=== PATIENT | female | born 1965 | race American Indian/Alaskan Native ===

== ENCOUNTER 2016-11-30 09:41 | Emergency (ER) | payer SELFPAY ==
[2016-11-30 09:51] VITALS: BMI 25.8
--- NOTE | 2016-11-30 10:17 | C.PDOC ---
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 Patient reports of multiple prior ER visit for same complaint. Denies trauma, chest pain, neck pain, headache, weakness or numbness. 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) Past Medical History Reviewed: Historical Data, Nursing Documentation, Vital Signs Vital Signs: Last Vital Signs Temp 97.6 F 11/30/16 11:44 Pulse 61 11/30/16 11:44 Resp 20 11/30/16 11:44 BP 133/86 11/30/16 11:44 Pulse Ox 97 11/30/16 11:44 - [facility] Procedures CL REDUC DISLOC-SHOULDER (03/07/14) Family History: States: No Known Family Hx - Social History Hx Tobacco Use: Yes Hx Alcohol Use: Yes Hx Substance Use: No - Immunization History Hx Tetanus Toxoid Vaccination: No Hx Influenza Vaccination: No Hx Pneumococcal Vaccination: No Review Of Systems Except As Marked, All Systems Reviewed And Found Negative. Cardiovascular: Negative for: Chest Pain Musculoskeletal: Positive for: Other ((+) Left shoulder dislocation). Negative for: Neck Pain Neurological: Negative for: Weakness, Numbness, Headache Physical Exam - Physical Exam Appears: Non-toxic, No Acute Distress Skin: Warm, Dry, No Rash Head: Atraumatic, Normacephalic Oral Mucosa: Moist Neck: Normal, Normal ROM, Supple Chest: Symmetrical, No Tenderness Extremity: Capillary Refill (<2 secs), Other ((+) Flattening of left deltoid, internal rotation.) Pulses: Left Radial: Normal, Right Radial: Normal Neurological/Psych: Oriented x3, Normal Speech, Normal Motor, Normal Sensation ED Course And Treatment O2 Sat by Pulse Oximetry: 97 (RA) Pulse Ox Interpretation: Normal - Other Rad X-Ray - Left Shoulder X-Ray: Interpreted by Me, Viewed By Me Interpretation: S/P REDUCTION. NO DISLOCATION, FX Orthopedic Time Performed: 10:23 Time Out: Side verified, Site verified, Patient ID confirmed Procedure: Joint reduction Location: Left Consent obtained: Written Performed by: Attending Physician Diagnosis: Dislocation Joints: Glenohumeral Joint Procedural Sedation: Propofol Systemic Analgesia: Other Capillary refill: Normal Distal Sensation: Normal Distal Motor Function: Normal Capillary Refill: Normal Compartment: Normal Distal Sensation: Normal Distal Motor Function: Normal Post-reduction Radiograph: Good Alignment Patient tolerated procedure: Well Progress - Re-Evaluation Re-evaluation Note: 11/30/16 10:21 S/P CLOSED REDUCTION ATTEMPT W TRACTION-COUNTERTRACTION AND W WEIGHTS X 2 WO IMPROVE. PT AGREES TO SEDATION. NPO SINCE 2129 Medical Decision Making Medical Decision Making: PLAN: * Toradol IVP * Diprivan IV * Fentanyl IV * Sodium Chloride IV NOTE: * Patient is requesting immediate reduction without sedation. Patient states " if you put it in now, I don't need sedation". * 2 non sedation reduction attempts were made with no success. * Attempted reduction with moderate sedation with success. Disposition Counseled Patient/Family Regarding: Studies Performed, Diagnosis, Need For Followup - Disposition Referrals: [facility] [Outside] [facility] [Outside] David Aviles III, MD [Staff Provider] - Disposition: HOME/ ROUTINE Disposition Time: 11:31 Condition: IMPROVED Instructions: Shoulder Dislocation (ED), Moderate Sedation (ED), Shoulder Manipulation (GEN) Forms: [facility] (German), Work Excuse - Clinical Impression Clinical Impression: Shoulder dislocation, recurrent - Scribe Statement The provider has reviewed the documentation as recorded by the Eribertoibcarlos a Zaragoza Provider Attestation: All medical record entries made by the Eribertoibe were at my direction and personally dictated by me. I have reviewed the chart and agree that the record accurately reflects my personal performance of the history, physical exam, medical decision making, and the department course for this patient. I have also personally directed, reviewed, and agree with the discharge instructions and disposition. Proc Sedation PRE-PROCEDURE - Pre-Anesthesia Chief Complaint: Upper Extremity Problem/Injury Past Medical History: Medications Reviewed, Allergies Reviewed, Record Review Previous Surgies: Reviewed Family History/Social History: Reviewed - Physical Exam/Review of Systems Vital Signs Reviewed: Yes Cardiovascular: Regular Rate and Rhythm, Normal S1, S2 Respiratory/Chest: Clear to Auscultation, Good Air Exchange Neurological: GCS=15, CN II-XII Intact, Speech Normal Mental Status: Alert and Oriented X 3 - Pre-Procedure Airway Assessment History of difficult intubation or surgical airway (i.e trach):: No Inability to extend neck:: No Mouth opening less than two finger breadth:: No Diagnosis of sleep apnea:: No Less than three finger breadth to hyoid bone:: No ASA Criteria: 1 - Healthy, normal. 2 - Mild systemic disease (No functional limitations, mildline obesity, DM withot complications, Hypertention). 3 - Severe systemic disease (Some functional limitation, stable angina, morbid obesity, controlled COPD/Asthma/CHF). 4 - Sever systemic disease constant threat to life (Unstable angina, active symptoms of COPD/Asthma, CHF/ Hypertension. 5 - Moribund ASA Clarification: ASA II Mallampati (airway): Class II Proc Sedation INTRA-PROCEDURE - Medications Medications Given: Discontinued Medications Fentanyl (Fentanyl) 75 mcg IV STAT STA Stop: 11/30/16 10:37 Last Admin: 11/30/16 10:48 Dose: 75 mcg eMAR Start Stop Document 11/30/16 10:48 [facility] (Rec: 11/30/16 11:21 [facility] [id number]) Intravenous Solution Start Date 11/30/16 Start Time 10:48 End Date 11/30/16 End time 10:49 Total Infusion Time 1 Sodium Chloride (Sodium Chloride 0.9%) 1,000 mls @ 1,000 mls/hr IV .Q1H ONE Stop: 11/30/16 11:34 Last Admin: 11/30/16 11:20 Dose: 1,000 mls/hr eMAR Start Stop Document 11/30/16 11:20 [facility] (Rec: 11/30/16 11:20 [facility] [id number]) Intravenous Solution Start Date 11/30/16 Start Time 10:35 Ketorolac Tromethamine (Toradol) 30 mg IVP STAT STA Stop: 11/30/16 10:37 Last Admin: 11/30/16 10:45 Dose: 30 mg MAR Pain Assessment Document 11/30/16 10:45 FDA (Rec: 11/30/16 11:21 [facility] [id number]) Pain Reassessment Is this a pain reassessment? Yes Sleep Is patient sleeping during reassessment? No Presence of Pain Presence of Pain Yes Pain Scale Used Pain Scale Used Numeric Location Left, Right or Bilateral Left Pain Location Body Site Shoulder IVP Administration Document 11/30/16 10:45 FDA (Rec: 11/30/16 11:21 [facility] [id number]) Charges for Administration # of IVP Administrations 1 Propofol (Diprivan) 200 mg IV ONCE ONE Stop: 11/30/16 10:37 Last Admin: 11/30/16 11:56 Dose: Propofol (Diprivan) 75 mg IV ONCE ONE Stop: 11/30/16 10:43 Propofol (Diprivan) 25 mg IV ONCE ONE Stop: 11/30/16 10:44 Last Admin: 11/30/16 10:50 Dose: 25 mg eMAR Start Stop Document 11/30/16 10:50 FDA (Rec: 11/30/16 11:57 [facility] [id number]) Intravenous Solution Start Date 11/30/16 Start Time 10:50 End Date 11/30/16 End time 10:51 Total Infusion Time 1 Propofol (Diprivan) 50 mg IV ONCE ONE Stop: 11/30/16 10:46 Last Admin: 11/30/16 10:51 Dose: 50 mg eMAR Start Stop Document 11/30/16 10:51 [facility] (Rec: 11/30/16 11:57 [facility] [id number]) Intravenous Solution Start Date 11/30/16 Start Time 10:51 End Date 11/30/16 End time 10:52 Total Infusion Time 1 Proc Sedation POST-PROCEDURE - Post Procedure Physician Note Post Procedure Note: A03, ASYMPT. PS FEELS BETTER. CURRENTLY AT BASELINE PRE PROCEDURE MENTAL STATUS ESTIMATED BLOOD LOSS 0 PT TOLERATED WELL SEDATION DISCHARGE INSTRUCTIONS GIVEN. - Discharge Checklist Written MD order for Discharge: Yes Vital signs assessed and are consistent with pre-procedure reading: Yes Minimal nausea, vomiting, and dizziness: Yes Ambulates to pre-procedural level: Yes Alert and oriented to pre-procedural level: Yes Responsible adult escort present: No DISCHARGE INSTRUCTIONS GIVEN:: Yes Orthopedic Care Application Of:: Shoulder Immobilizer
[2016-11-30] MEDS ORDERED: Sodium Chloride 0.9% 1,000 ML IV ONE (10:35)
[2016-11-30] MEDS ORDERED: Sodium Chloride 0.9% 1,000 ML ONE (10:42)
[2016-11-30] MEDS ORDERED: Propofol 10 mg/ml Inj (20 ML) IV ONE ×3 (10:42→10:45)
[2016-11-30] MEDS ORDERED: Propofol 10 mg/ml Inj (20 ML) ONE (10:42)
[2016-11-30] MEDS: Propofol 10 mg/ml Inj (20 ML) IV ONE ×2 (10:49→11:56)
[2016-11-30 11:31] VITALS: O2SAT 97
[2016-11-30 11:45] VITALS: BP 133/86; PULSE 61; RESP 20; TEMP 97.6
--- NOTE | 2016-11-30 11:56 | RAD ---
PROCEDURE: Radiographs of the Left Shoulder HISTORY: sp reduction COMPARISON: Left shoulder radiograph performed 02/24/15 FINDINGS: BONES: No acute displaced fracture. The distal clavicle and underlying ribs appear intact. JOINTS: No acute dislocation. Glenohumeral joint space narrowing. SOFT TISSUES: Soft tissues appear unremarkable. No evidence of radiopaque foreign body. IMPRESSION: No acute displaced fracture or dislocation evident. If symptoms persist or if there is continued clinical concern, x-ray follow-up in 7-10 days should be considered.
== END 2016-11-30 11:44 | disposition home or self-care (01) ==
LOC: C.ER 09:41
DX: M24.412 Recurrent dislocation, left shoulder (principal)
CPT/HCPCS: 23650; 73030; 96374; 99285; J1885; J2704; J3010; J7040

== ENCOUNTER 2017-01-11 02:52 | Emergency (ER) | payer SELFPAY ==
[2017-01-11 02:53] VITALS: BMI 25.8
[2017-01-11 03:10] VITALS: O2SAT 100
[2017-01-11] MEDS ORDERED: Midazolam 2 MG/2 ML VIAL ONE ×2 (03:10→03:35)
[2017-01-11] MEDS ORDERED: Sodium Chloride 0.9% 1,000 ML IV ONE (03:13)
[2017-01-11] MEDS ORDERED: Sodium Chloride 0.9% 1,000 ML ONE (03:14)
[2017-01-11] MEDS ORDERED: Midazolam 2 MG/2 ML VIAL IVP ONE (03:28)
[2017-01-11] MEDS ORDERED: Midazolam 5 MG/5 ML VIAL IVP ONE ×2 (03:30→03:40)
--- NOTE | 2017-01-11 03:58 | C.PDOC ---
History Of Present Illness 51 year old female presents to the ED for evaluation of left shoulder pain which began earlier today. Patient reports limited movement of her left shoulder. She reports history of dislocation to the area in the past. Patient also complains of cough and cold symptoms for 2 weeks. She denies fever, chills or recent trauma/injuries to the affected area. Chief Complaint (Nursing): Upper Extremity Problem/Injury History Per: Patient History/Exam Limitations: no limitations Onset/Duration Of Symptoms: Hrs Current Symptoms Are (Timing): Still Present Quality: "Pain" Additional History Per: Patient Past Medical History Reviewed: Historical Data, Nursing Documentation, Vital Signs Vital Signs: Last Vital Signs Temp 98.0 F 01/11/17 03:51 Pulse 47 L 01/11/17 05:31 Resp 16 01/11/17 05:31 BP 147/72 01/11/17 05:31 Pulse Ox 100 01/11/17 05:31 - Medical History PMH: No Chronic Diseases Surgical History: No Surg Hx - [facility] Procedures CL REDUC DISLOC-SHOULDER (03/07/14) Family History: States: Unknown Family Hx - Social History Hx Tobacco Use: Yes Hx Alcohol Use: Yes Hx Substance Use: No - Immunization History Hx Tetanus Toxoid Vaccination: No Hx Influenza Vaccination: No Hx Pneumococcal Vaccination: No Review Of Systems Constitutional: Negative for: Fever, Chills Respiratory: Positive for: Cough Musculoskeletal: Positive for: Shoulder Pain (left ) Physical Exam - Physical Exam Appears: Non-toxic, No Acute Distress Skin: Normal Color, Warm, Dry Head: Atraumatic, Normacephalic Eye(s): bilateral: Normal Inspection Ear(s): Bilateral: Normal Nose: Normal, No Discharge Oral Mucosa: Moist Throat: Normal, No Erythema, No Exudate Neck: Supple Chest: Symmetrical, No Deformity, No Tenderness Cardiovascular: Rhythm Regular, No Murmur Respiratory: Normal Breath Sounds, No Rales, No Rhonchi, No Wheezing Extremity: No Normal ROM (limited, in left shoulder ), Capillary Refill (less than 2 seconds ), No Swelling, Other (flattening to left deltoid area ) Neurological/Psych: Oriented x3, Normal Speech, Normal Cognition Gait: Steady ED Course And Treatment O2 Sat by Pulse Oximetry: 100 (on RA) Pulse Ox Interpretation: Normal - Other Rad left shoulder- X-Ray: Interpreted by Me, Viewed By Me Interpretation: dislocated shpulder post reductio X-Ray: Viewed By Me Interpretation: post reduction-good alignment/ position Progress Note: Bloodwork, left shoulder XR ordered and reviewed. Morphine IVP, Versed IVP, Zofran IVP, and IV Fluids administered. Disposition Counseled Patient/Family Regarding: Diagnosis - Disposition Referrals: [facility] [Outside] David Aviles III, MD [Staff Provider] - Disposition: HOME/ ROUTINE Disposition Time: 07:00 Condition: IMPROVED Additional Instructions: keep shoulder immobilizer Prescriptions: Naproxen 375 mg PO TIDPC #14 tablet Promethazine DM [Phenergan DM Syrup] 5 ml PO TID #120 ml Instructions: Shoulder Dislocation (ED), Cold Symptoms (ED) Forms: [facility] (Pashto) - POA Present On Arrival: None - Clinical Impression Clinical Impression: Shoulder dislocation, URI (upper respiratory infection), Cough - Scribe Statement The provider has reviewed the documentation as recorded by the Scribe (Anisa Babin) Provider Attestation: All medical record entries made by the Scribe were at my direction and personally dictated by me. I have reviewed the chart and agree that the record accurately reflects my personal performance of the history, physical exam, medical decision making, and the department course for this patient. I have also personally directed, reviewed, and agree with the discharge instructions and disposition. ED Procedural Sedation - Pre Anesthesia Assessment Chief Complaint: Upper Extremity Problem/Injury Past Medical History: Medications Reviewed, Allergies Reviewed, Record Review Previous Surgies: Reviewed Family History/Social History: Reviewed - Physical Exam/Review of Systems Vital Signs Reviewed: Yes Cardiovascular: Regular Rate and Rhythm, Normal S1, S2. denies: Murmurs Respiratory/Chest: Clear to Auscultation Neurological: GCS=15, Normal Sensory Function, Normal Cerebellar Funct, Gait Normal Abdomen: denies: Tenderness Mental Status: Alert and Oriented X 3 - Pre-Procedure Airway Assessment History of difficult intubation or surgical airway (i.e trach):: No Inability to extend neck:: No Mouth opening less than two finger breadth:: No Diagnosis of sleep apnea:: No Less than three finger breadth to hyoid bone:: No ASA Criteria: 1 - Healthy, normal. 2 - Mild systemic disease (No functional limitations, mildline obesity, DM withot complications, Hypertention). 3 - Severe systemic disease (Some functional limitation, stable angina, morbid obesity, controlled COPD/Asthma/CHF). 4 - Sever systemic disease constant threat to life (Unstable angina, active symptoms of COPD/Asthma, CHF/ Hypertension. 5 - Moribund ASA Clarification: ASA I Mallampati (airway): Class I - Intra-Procedure (Medications) Medications Given: Discontinued Medications Sodium Chloride (Sodium Chloride 0.9%) 1,000 mls @ 1,000 mls/hr IV .Q1H ONE Stop: 01/11/17 04:12 Last Admin: 01/11/17 03:13 Dose: 1,000 mls/hr eMAR Start Stop Document 01/11/17 03:13 [facility] ([facility]11[facility]17 [id number] Intravenous Solution Start Date 01/11/17 Start Time 04:05 Midazolam HCl (Versed Inj) 2 mg IVP ONCE ONE Stop: 01/11/17 03:29 Last Admin: 01/11/17 03:28 Dose: 2 mg IVP Administration Document 01/11/17 03:28 [facility]J (Rec: 01/11/17 04:02 [id number][facility] Charges for Administration # of IVP Administrations 1 Midazolam HCl (Versed Inj) 1 mg IVP ONCE ONE Stop: 01/11/17 03:31 Last Admin: 01/11/17 03:30 Dose: 1 mg IVP Administration Document 01/11/17 03:30 W[facility] (Rec: 01/11/17 04:03 [id number][facility] Charges for Administration # of IVP Administrations 1 Midazolam HCl (Versed Inj) 1 mg IVP ONCE ONE Stop: 01/11/17 03:41 Last Admin: 01/11/17 03:40 Dose: 1 mg IVP Administration Document 01/11/17 03:40 W[facility] (Rec: 01/11/17 04:03 [id number][facility] Charges for Administration # of IVP Administrations 1 Morphine Sulfate (Morphine) 2 mg IVP STAT STA Stop: 01/11/17 03:14 Last Admin: 01/11/17 03:13 Dose: 2 mg MAR Pain Assessment Document 01/11/17 03:13 [facility]JM (Rec: 01/11/17 04:02 [facility] [id number]) Pain Reassessment Is this a pain reassessment? No IVP Administration Document 01/11/17 03:13 WJM (Rec: 01/11/17 04:02 W [id number]) Charges for Administration # of IVP Administrations 1 Morphine Sulfate (Morphine) 2 mg IVP STAT STA Stop: 01/11/17 03:30 Last Admin: 01/11/17 03:29 Dose: 2 mg MAR Pain Assessment Document 01/11/17 03:29 WJM (Rec: 01/11/17 04:02 [facility] [id number]) Pain Reassessment Is this a pain reassessment? No IVP Administration Document 01/11/17 03:29 WJM (Rec: 01/11/17 04:02 [facility] [id number]) Charges for Administration # of IVP Administrations 1 Morphine Sulfate (Morphine) 2 mg IVP STAT STA Stop: 01/11/17 03:34 Last Admin: 01/11/17 03:33 Dose: 2 mg MAR Pain Assessment Document 01/11/17 03:33 WJM (Rec: 01/11/17 04:05 [facility] [id number]) Pain Reassessment Is this a pain reassessment? No IVP Administration Document 01/11/17 03:33 WJM (Rec: 01/11/17 04:05 [facility] [id number]) Charges for Administration # of IVP Administrations 1 Ondansetron HCl (Zofran Inj) 4 mg IVP ONCE ONE Stop: 01/11/17 03:14 Last Admin: 01/11/17 03:13 Dose: 4 mg IVP Administration Document 01/11/17 03:13 WJM (Rec: 01/11/17 04:02 [facility] [id number]) Charges for Administration # of IVP Administrations 1 - Post-Procedure Post Procedure Note: reduction of left shoulder dislocation Procedures - Orthopedic Joint Reduction Joint #1 Consent Obtained: verbal consent Time Out Performed: Yes Side: left Joint Reduction Location: shoulder Analgesia: other (conscious sedation ) Technique Used: traction/counter-traction Post-Reduction Neuro Exam: intact Post-Reduction Vascular Exam: intact Post Reduction X-Ray Obtained: Yes Post Reduction X-Ray Results: reduced Patient Tolerated Procedure: well, no complications
[2017-01-11 06:05] VITALS: BP 144/64; PULSE 59; RESP 18; TEMP 99
--- NOTE | 2017-01-11 08:36 | RAD ---
PROCEDURE: HISTORY: post reduction COMPARISON: 01/11/2017 at 316 hour TECHNIQUE: Single frontal view FINDINGS: Motion present Humeral head is reduced in the glenoid cavity IMPRESSION: Successful postreduction of prior anterior dislocation
--- NOTE | 2017-01-11 08:38 | RAD ---
PROCEDURE: HISTORY: shoulder dislocation COMPARISON: 11/30/2016 TECHNIQUE: Single view FINDINGS: Humeral head anterior- inferiorly dislocated from glenoid. No fracture appreciated. Acromioclavicular and glenohumeral hypertrophic arthrosis IMPRESSION: . Anterior shoulder dislocation. No fracture. Arthrosis
== END 2017-01-11 06:33 | disposition home or self-care (01) ==
LOC: C.ER 02:52
DX: S43.015A Anterior dislocation of left humerus, initial encounter (principal); X58.XXXA Exposure to other specified factors, initial encounter; J06.9 Acute upper respiratory infection, unspecified; R05 Cough
CPT/HCPCS: 23650; 73020; 96374; 96375; 99285; J2250; J2270; J2405; J7040

== ENCOUNTER 2018-06-02 13:07 | Emergency (ER) | payer OTHER ==
[2018-06-02 13:11] VITALS: BMI 25.0
[2018-06-02] MEDS ORDERED: Sodium Chloride 0.9% 1,000 ML ONE (13:37)
[2018-06-02] MEDS ORDERED: Sodium Chloride 0.9% 1,000 ML IV ONE ×2 (13:40)
--- NOTE | 2018-06-02 13:49 | C.PDOC ---
History Of Present Illness 53 year old female with no pertinent medical history presents to the ED complaining of stabbing abdominal pain and headache since this morning. Reports she started vomiting at 0200 today. Denies any fever, chills, chest pain, shortness of breath, or any other symptoms. Time Seen by Provider: 06/02/18 13:22 Chief Complaint (Nursing): GI Problem Past Medical History Vital Signs: Last Vital Signs Temp 97.3 F L 06/02/18 13:18 Pulse 81 06/02/18 13:18 Resp 20 06/02/18 13:18 BP 163/96 H 06/02/18 13:18 Pulse Ox 100 06/02/18 13:18 - [facility] Procedures CL REDUC DISLOC-SHOULDER (03/07/14) Family History: States: Unknown Family Hx - Social History Hx Tobacco Use: Yes Hx Alcohol Use: Yes Hx Substance Use: No - Immunization History Hx Tetanus Toxoid Vaccination: No Hx Influenza Vaccination: No Hx Pneumococcal Vaccination: No Review Of Systems Except As Marked, All Systems Reviewed And Found Negative. Constitutional: Negative for: Fever, Chills Cardiovascular: Negative for: Chest Pain Respiratory: Negative for: Shortness of Breath Gastrointestinal: Positive for: Nausea, Vomiting, Abdominal Pain. Negative for: Diarrhea Genitourinary: Negative for: Dysuria, Hematuria Physical Exam - Physical Exam Appears: Non-toxic, Other (retching, writhing in pain ) Skin: Warm, Dry, No Rash Head: Normacephalic Eye(s): bilateral: Normal Inspection Nose: Normal Oral Mucosa: Moist, Other (foul breath ) Teeth: No Normal Dentition (poor dentition ), Edentulous Neck: Supple Chest: Symmetrical Cardiovascular: Rhythm Regular, No Murmur Respiratory: Normal Breath Sounds, No Rales, No Rhonchi, No Wheezing Gastrointestinal/Abdominal: Soft, Tenderness (diffused tenderness ), No Distention, No Guarding, No Rebound Back: No CVA Tenderness Neurological/Psych: Oriented x3, Normal Speech Gait: Steady ED Course And Treatment - Laboratory Results Result Diagrams: 06/02/18 13:47 06/02/18 13:47 O2 Sat by Pulse Oximetry: 100 (RA) Pulse Ox Interpretation: Normal - Other Rad XR abd X-Ray: Viewed By Me, Read By Radiologist Interpretation: Accession No. : [id number]. Patient Name / ID : EDVIN PICKETT / [id number]. Exam Date : 06/02/2018 13:50:42 ( Approved ). Study Comment : Sex / Age : F / 53Y. Creator : Jeremy Andrade MD. Dictator : Jeremy Andrade MD. Storage Garage Attendant : Tax Processor : Jeremy Andrade MD. Approver2 : Report Date : 06/02/2018 15:29:36. My Comment : *. Date of service: 06/02/2018. PROCEDURE: Radiographs of the chest and abdomen (obstructive series). HISTORY: abd pain. COMPARISON: No prior. TECHNIQUE: AP radiograph of the chest, with upright and supine radiographs of the abdomen. Four views obtained. FINDINGS: CHEST: Lungs: Clear. Cardiovascular: Normal size heart. No pulmonary vascular congestion. No aortic atherosclerotic calcification present. Pleura: No pleural fluid. No pneumothorax. Other findings: None. ABDOMEN AND PELVIS: Bowel: Unremarkable bowel gas pattern. No evidence of mechanical obstruction. Free air: None. Bones: Unremarkable. Other findings: None. IMPRESSION: Unremarkable radiographs of chest and abdomen. No evidence of mechanical bowel obstruction. Medical Decision Making Medical Decision Making: Plan - CT abd/pel - EKG - Obstructive series - Pepcid 20mg IVP - Zofran 4mg IVP - IV fluids - HCG urine - UA - Bloodwork Upon seeing patient, she became anxious and pulled out IV. Patient refused CT scan or any further treatment. Patient requested to be discharged. She was given follow up instructions and instructed to return to ER if symptoms worsen or new symptoms arise. After patient walked out of the ER, she began vomiting and came back requesting further treatment. The drug screen came back positive for Marijuana. Vomiting is likely Cannabis induced hyperemesis. Patient treated with Thorazine and is currently responding well to medication. Disposition - Disposition Disposition: HOME/ ROUTINE Disposition Time: 18:49 Condition: STABLE Prescriptions: Ondansetron ODT [Zofran ODT] 4 mg PO TID #12 odt Instructions: Nausea and Vomiting, Adult (DC) Forms: [facility] (Chinese), General Discharge Instructions - Clinical Impression Clinical Impression: Gastritis, Vomiting - Scribe Statement The provider has reviewed the documentation as recorded by the Scribe Ca Smith All medical record entries made by the Eribertoibe were at my direction and personally dictated by me. I have reviewed the chart and agree that the record accurately reflects my personal performance of the history, physical exam, medical decision making, and the department course for this patient. I have also personally directed, reviewed, and agree with the discharge instructions and disposition.
[2018-06-02 14:15] LABS: BASO % 0.5 % (0.0-2.0); EOS # 0.1 K/uL (0.0-0.7); EOS % 1.6 % (0.0-4.0); HEMOGLOBIN 13.5 g/dL (11.0-16.0); LYMPH # 2.3 K/uL (1.0-4.3); LYMPH % 27.5 % (20.0-40.0); MEAN CELL VOLUME 88.8 fL (81.0-99.0); MEAN CORPUSCULAR HEMOGLOBIN 30.6 pg (27.0-31.0); MEAN CORPUSCULAR HGB CONC 34.5 g/dL (33.0-37.0); MEAN PLATELET VOLUME 7.8 fL (7.2-11.7); MONO # 0.5 K/uL (0.0-0.8); MONO % 6.6 % (0.0-10.0); NEUT # 5.3 K/uL (1.8-7.0); NEUT % 63.8 % (50.0-75.0); RBC 4.39 Mil/uL (3.80-5.20); RED CELL DISTRIBUTION WIDTH 14.2 % (11.5-14.5); WHITE BLOOD COUNT 8.3 K/uL (4.8-10.8)
[2018-06-02 14:22] LABS: ALB/GLOB RATIO 1.4 (1.0-2.1); BLOOD UREA NITROGEN 11 mg/dL (7-17); CALCIUM 9.7 mg/dl (8.6-10.4); GFR NON-AFRICAN AMERICAN > 60; LIPASE 89 U/L (23-300)
[2018-06-02 14:25] LABS: ALT/SGPT 11 U/L (9-52); AST/SGOT 33 U/L (14-36)
[2018-06-02 14:33] LABS: B-TYPE NATRIURETIC PEPTIDE 68.6 pg/mL (0-900)
[2018-06-02 14:57] LABS: SQUAMOUS EPITHIAL 11 /hpf (0-5); URINE AMORPHOUS SEDIMENT FEW /ul (<OCC); URINE BACTERIA RARE (<OCC); URINE BILIRUBIN NEGATIVE (NEGATIVE); URINE BLOOD 1+ (NEGATIVE); URINE CLARITY Hazy (Clear); URINE COLOR Yellow (YELLOW); URINE GLUCOSE (UA) NORMAL (Normal); URINE HYALINE CAST 0-2 /lpf (0-2); URINE LEUKOCYTE ESTERASE NEG Leu/uL (Negative); URINE PROTEIN NEGATIVE (NEGATIVE); URINE UROBILINOGEN NORMAL mg/dL (0.2-1.0)
[2018-06-02 14:58] LABS: HCG,QUALITATIVE URINE NEGATIVE (NEGATIVE)
[2018-06-02 15:10] LABS: BARBITURATES, UR NEGATIVE (NEGATIVE); BENZODIAZEPINES, UR NEGATIVE (NEGATIVE); OPIATES, UR NEGATIVE (NEGATIVE); PHENCYCLIDINE, UR NEGATIVE (NEGATIVE)
--- NOTE | 2018-06-02 15:33 | RAD ---
Date of service: 06/02/2018 PROCEDURE: Radiographs of the chest and abdomen (obstructive series) HISTORY: abd pain COMPARISON: No prior. TECHNIQUE: AP radiograph of the chest, with upright and supine radiographs of the abdomen. Four views obtained. FINDINGS: CHEST: Lungs: Clear. Cardiovascular: Normal size heart. No pulmonary vascular congestion. No aortic atherosclerotic calcification present Pleura: No pleural fluid. No pneumothorax. Other findings: None. ABDOMEN AND PELVIS: Bowel: Unremarkable bowel gas pattern. No evidence of mechanical obstruction. Free air: None. Bones: Unremarkable. Other findings: None. IMPRESSION: Unremarkable radiographs of chest and abdomen. No evidence of mechanical bowel obstruction.
[2018-06-02 15:57] VITALS: RESP 18; TEMP 98
[2018-06-02 19:04] VITALS: BP 116/79; PULSE 78; O2SAT 98
--- NOTE | 2018-06-03 12:16 | CARD ---
APPROVED REPORT Date of service: 06/02/2018 EKG Measurement Heart [id number] <Conclusion> Sinus bradycardia T wave abnormality, consider anterolateral ischemia Abnormal ECG
== END 2018-06-02 19:03 | disposition home or self-care (01) ==
LOC: C.ER 13:07
DX: K29.70 Gastritis, unspecified, without bleeding (principal); R11.10 Vomiting, unspecified
CPT/HCPCS: 74022; 80053; 80324; 80345; 80346; 80349; 80353; 80358; 80361; 81001; 83690; 83880; 83992; 84484; 84703; 85025; 93005; 96361; 96372; 96374; 96375; 96376; 99285; J2405; J3230; J7030